=== PATIENT | female | born 1950 | race Hispanic/Latino ===

== ENCOUNTER → 2024-08-12 | Outpatient (CLI) | payer MEDICARE ==
--- NOTE | 2024-08-12 12:11 | HMCIMG ---
DEXA BONE DENSITY SURVEY REASON: AGE-RELATED OSTEOPOROSIS W/O CURRENT PATHOLOGICAL FX COMPARISON: None TECHNIQUE: DEXA bone densitometry was performed in the lumbar spine and left hip. FINDINGS: Mean bone mass density in the spine is 1.081 g present with square, T score 0.3, within normal limits. Femoral neck T score however is -1.5 and total proximal femur T score on the left -1.3 consistent with osteopenia. IMPRESSION: 1. Osteopenia consistent with a moderate fracture risk.
== END | disposition home or self-care (01) ==
LOC: RAH 10:44
PROVIDERS: ATTEND Internal Medicine
DX: M81.0 Age-related osteoporosis without current pathological fracture (principal)
CPT/HCPCS: 77080